=== PATIENT | male | born 1940 | race Asian ===

== ENCOUNTER 2022-12-24 06:46 | Observation (INO) | payer MEDICARE ==
[2022-12-19 14:23] LABS: BASOPHILS # (AUTO) 0.01 K/uL (0.00-0.20); BASOPHILS % (AUTO) 0.1 % (0.0-5.0); EOSINOPHILS # (AUTO) 0.13 K/uL (0.00-0.70); EOSINOPHILS % (AUTO) 1.3 % (0.0-8.0); HEMATOCRIT 46.9 % (42-54); IMMATURE GRANULOCYTE ABSOLUTE 0.03 K/uL (0-1); LYMPHOCYTES % (AUTO) 20.8 % (21.0-51.0); MEAN CORPUSCULAR HEMOGLOBIN 27.8 pg (27.0-33.0); MEAN CORPUSCULAR HGB CONC 33.3 g/dL (32.0-36.0); MEAN CORPUSCULAR VOLUME 83.5 fL (79-99); MONOCYTES # (AUTO) 0.6 K/uL (0.1-1.0); MONOCYTES % (AUTO) 6.4 % (3.0-13.0); NEUTROPHILS # (AUTO) 6.9 K/uL (1.8-7.7); NEUTROPHILS % (AUTO) 71.1 % (40.0-77.0); PLATELET COUNT (AUTO) 303 K/uL (130-400); RED BLOOD CELL COUNT(AUTO) 5.62 MIL/uL (4.50-6.20); RED CELL DISTRIBUTION WIDTH 13.4 % (11.0-15.5); WHITE BLOOD COUNT (AUTO) 9.7 K/uL (4.8-10.8)
[2022-12-19 14:37] LABS: INR 0.95 (0.85-1.15); PROTHROMBIN TIME 11.1 SEC (9.6-11.6)
[2022-12-19 14:38] LABS: PARTIAL THROMBOPLASTIN TIME 27.1 SEC (26.3-35.5)
[2022-12-19 14:43] LABS: ALBUMIN 3.8 g/dL (3.5-5.0); BILIRUBIN,TOTAL 0.6 mg/dL (0.2-1.0); POTASSIUM 4.4 mmol/L (3.5-5.1); TOTAL PROTEIN, SERUM 8.8 g/dL (6.0-8.3)
[2022-12-24] VITALS (27 sets, daily range): BP systolic 92–199; BP diastolic 51–86; PULSE 50–83; RESP 12–22; O2SAT 99–100
[~2022-12-24] VITALS: Ht 172.7 cm; Wt 74.4 kg
[2022-12-24] MEDS ORDERED: LACTATED RINGERS 1000ML 1,000 ML IV ONE (07:08)
[2022-12-24] MEDS: CEFAZOLIN SODIUM 2 GM VIAL ONE ×2 (07:37→12:00)
[2022-12-24] MEDS ORDERED: 0.9%NACL 100ML 48.45 ML, ROPIVACAINE 0.5% 5MG/ML 30ML 246.25 MG, KETOROLAC TROMETHAMINE... IV PRN ×5 (08:00)
[2022-12-24] MEDS ORDERED: CARV25TA PO (08:42)
[2022-12-24] MEDS ORDERED: DUTA0.5C37 PO (08:42)
[2022-12-24] MEDS ORDERED: SAW/1TAB2 PO (08:42)
[2022-12-24] MEDS ORDERED: CALC-866 PO (08:42)
[2022-12-24] MEDS ORDERED: AEC81 PO (08:42)
[2022-12-24] MEDS ORDERED: CELE100 PO (08:42)
[2022-12-24] MEDS ORDERED: TRAM-355 PO (08:42)
[2022-12-24] MEDS ORDERED: LATA2.5D14 OD (08:42)
[2022-12-24] MEDS ORDERED: SAW1CAPS7 PO (08:42)
[2022-12-24] MEDS ORDERED: ROSU10TA28 PO (08:42)
[2022-12-24] MEDS ORDERED: SUCCINYLCHOLINE CHLORIDE 20 MG/ML 10 ML VIAL ONE (09:52)
[2022-12-24] MEDS ORDERED: LIDOCAINE PF 100MG/5ML (2%) SYRINGE 5ML ONE (09:52)
[2022-12-24] MEDS ORDERED: GLYCOPYRROLATE 1 MG/5 ML SYRINGE ONE (09:54)
[2022-12-24] MEDS ORDERED: DEXAMETHASONE SOD PHOSPHATE 10MG/ML 1ML VIAL ONE (09:54)
[2022-12-24] MEDS ORDERED: NEOSTIGMINE 5MG/5ML SYR IV ONE (09:54)
[2022-12-24] MEDS ORDERED: PROPOFOL 10 MG/ML 20ML VIAL IV ONE (09:54)
[2022-12-24] MEDS ORDERED: ONDANSETRON 4MG INJ ONE (09:55)
[2022-12-24] MEDS ORDERED: ROCURONIUM 10MG/1ML SYR 10 MG/ML ML ONE (09:55)
[2022-12-24] MEDS ORDERED: PHENYLEPHRINE HCL 10 MG/ML 1ML VIAL IV ONE (09:59)
[2022-12-24] MEDS ORDERED: FENTANYL CITRATE PF 50 MCG/1 ML 5ML AMP IV ONE (10:00)
[2022-12-24] MEDS ORDERED: CEFAZOLIN SODIUM 1 GM VIAL ONE (10:19)
[2022-12-24] MEDS ORDERED: GENTAMICIN SULFATE 80 MG/2 ML VIAL ONE (10:19)
[2022-12-24] MEDS ORDERED: TRANEXAMIC ACID 1000MG/10ML ONE (10:19)
[2022-12-24] MEDS ORDERED: LIDOCAINE HCL 400MG/20ML VIAL ONE (10:27)
[2022-12-24] MEDS ORDERED: PROPOFOL 1000 MG/100 ML 100 ML IV ONE (10:27)
[2022-12-24] MEDS ORDERED: KETAMINE 50MG/ML SYRINGE 50 MG/ML DISP.SYRIN ONE (10:28)
[2022-12-24] MEDS ORDERED: MIDAZOLAM HCL 1 MG/ML 5ML VIAL ONE (10:34)
[2022-12-24] MEDS ORDERED: FENTANYL CITRATE PF 50 MCG/1 ML 2ML VIAL ONE (14:05)
[2022-12-24] MEDS ORDERED: DIPHENHYDRAMINE HCL 25 MG CAPSULE PO PRN (16:30)
[2022-12-24] MEDS ORDERED: BENZOCAINE/MENTH/CETYLPYRD CL 1 EACH LOZENGE MM PRN (16:30)
[2022-12-24] MEDS ORDERED: DIPHENOXYLATE HCL/ATROPINE 2.5/0.025 MG TAB PO PRN (16:30)
[2022-12-24] MEDS ORDERED: ACETAMINOPHEN 325 MG TAB PO SCH (16:30)
[2022-12-24] MEDS ORDERED: HYDROMORPHONE PCA 10 MG/50 ML 50 ML IV PRN (16:30)
[2022-12-24] MEDS ORDERED: DIPHENHYDRAMINE HCL 25 MG CAPSULE PO SCH (16:30)
[2022-12-24] MEDS ORDERED: ACETAMINOPHEN 325 MG TAB PO PRN ×2 (16:30)
[2022-12-24] MEDS ORDERED: DiphenhydrAMINE HCL 50 MG/ML VIAL IM PRN (16:30)
[2022-12-24] MEDS ORDERED: ONDANSETRON 4MG INJ IVP PRN (16:30)
[2022-12-24] MEDS ORDERED: LACTULOSE 20 GM/30 ML UDCUP PO PRN (16:30)
[2022-12-24] MEDS ORDERED: MAG/ALUM/SIMETH 30 ML UDCUP PO PRN (16:30)
[2022-12-24] MEDS ORDERED: CEFAZOLIN SODIUM 2 GM VIAL IVPB SCH (16:30)
[2022-12-24] MEDS ORDERED: POTASSIUM CHLORIDE 10% ELIXIR 20 MEQ/15 ML UDCUP PO PRN (19:30)
[2022-12-24] MEDS ORDERED: MAGNESIUM 2GM PREMIX 50ML 50 ML IV PRN (19:30)
[2022-12-24] MEDS ORDERED: POTASSIUM CHLORIDE 20MEQ/100ML 100 ML IV PRN (19:30)
[2022-12-24] MEDS: 0.9%NACL 1000ML 1,000 ML IV SCH (19:54)
[2022-12-24] MEDS: CEFAZOLIN SODIUM 2 GM VIAL IVPB SCH (20:00)
[2022-12-24] MEDS: TRAMADOL HCL 50 MG TABLET PO PRN (20:00)
[2022-12-25] VITALS (9 sets, daily range): BP systolic 107–189; BP diastolic 52–86; PULSE 66–79; RESP 16–20; O2SAT 96–98
[2022-12-25] MEDS: 0.9%NACL 1000ML 1,000 ML IV SCH ×3 (02:13→20:39)
[2022-12-25 04:07] LABS: HEMATOCRIT 35.7 % (42-54); MEAN CORPUSCULAR HGB CONC 32.8 g/dL (32.0-36.0); MEAN CORPUSCULAR VOLUME 82.3 fL (79-99); RED BLOOD CELL COUNT(AUTO) 4.34 MIL/uL (4.50-6.20); RED CELL DISTRIBUTION WIDTH 13.2 % (11.0-15.5)
[2022-12-25 04:11] LABS: CREATININE 1.1 mg/dL (0.5-1.5); MAGNESIUM 1.8 mg/dL (1.80-2.40); POTASSIUM 3.5 mmol/L (3.5-5.1)
[2022-12-25] MEDS: CEFAZOLIN SODIUM 2 GM VIAL IVPB SCH (05:14)
[2022-12-25] MEDS: KCL 20 MEQ ERTAB PO PRN ×2 (06:17→08:35)
[2022-12-25] MEDS: RIVAROXABAN 10 MG TABLET PO SCH (08:35)
[2022-12-25] MEDS: ASPIRIN 81 MG EC TAB PO SCH (08:35)
[2022-12-25] MEDS: FAMOTIDINE 20MG TAB PO SCH (08:35)
[2022-12-25] MEDS: CARVEDILOL 25 MG TABLET PO SCH ×2 (08:35→20:34)
[2022-12-25] MEDS: TRAMADOL HCL 50 MG TABLET PO PRN (11:11)
[2022-12-25] MEDS ORDERED: Rosuvastatin Calcium 10 MG PO SCH (21:00)
[2022-12-25] MEDS ORDERED: LATANOPROST 2.5 ML DROPS OD SCH (21:00)
[2022-12-26 04:32] VITALS: BP 119/54; PULSE 71; RESP 18
[2022-12-26 04:36] LABS: BASOPHILS # (AUTO) 0.01 K/uL (0.00-0.20); BASOPHILS % (AUTO) 0.1 % (0.0-5.0); EOSINOPHILS # (AUTO) 0.25 K/uL (0.00-0.70); EOSINOPHILS % (AUTO) 2.4 % (0.0-8.0); HEMATOCRIT 30.2 % (42-54); IMMATURE GRANULOCYTE ABSOLUTE 0.04 K/uL (0-1); LYMPHOCYTES # (AUTO) 1.3 K/uL (1.0-4.8); LYMPHOCYTES % (AUTO) 11.9 % (21.0-51.0); MEAN CORPUSCULAR HEMOGLOBIN 27.1 pg (27.0-33.0); MEAN CORPUSCULAR HGB CONC 31.5 g/dL (32.0-36.0); MONOCYTES % (AUTO) 9.5 % (3.0-13.0); NEUTROPHILS % (AUTO) 75.7 % (40.0-77.0); PLATELET COUNT (AUTO) 208 K/uL (130-400); RED BLOOD CELL COUNT(AUTO) 3.51 MIL/uL (4.50-6.20); RED CELL DISTRIBUTION WIDTH 13.7 % (11.0-15.5); WHITE BLOOD COUNT (AUTO) 10.6 K/uL (4.8-10.8)
[2022-12-26 04:45] LABS: CREATININE 1.3 mg/dL (0.5-1.5); MAGNESIUM 2.2 mg/dL (1.80-2.40); POTASSIUM 3.4 mmol/L (3.5-5.1)
[2022-12-26] MEDS: KCL 20 MEQ ERTAB PO PRN ×2 (06:26→13:35)
[2022-12-26] MEDS: 0.9%NACL 1000ML 1,000 ML IV SCH ×2 (06:26→10:26)
[2022-12-26 07:50] VITALS: O2SAT 95
[2022-12-26 08:00] VITALS: BP 129/59; PULSE 70; RESP 18
[2022-12-26] MEDS: FAMOTIDINE 20MG TAB PO SCH (08:04)
[2022-12-26] MEDS: ASPIRIN 81 MG EC TAB PO SCH (08:04)
[2022-12-26] MEDS: RIVAROXABAN 10 MG TABLET PO SCH (08:04)
[2022-12-26] MEDS: TRAMADOL HCL 50 MG TABLET PO PRN ×2 (08:05→13:35)
[2022-12-26] MEDS: CARVEDILOL 25 MG TABLET PO SCH (08:05)
[2022-12-26 12:00] VITALS: BP 129/50; PULSE 64; RESP 18
== END 2022-12-26 15:45 ==
LOC: CANPRESDC → DAH 06:46 → DAHIP 06:47 → 4BH 15:45
PROVIDERS: ADMIT Orthopaedic Surgery; ATTEND Orthopaedic Surgery
DX: M17.12 Unilateral primary osteoarthritis, left knee (principal); I10 Essential (primary) hypertension; F03.90 Unspecified dementia, unspecified severity, without behavioral disturbance, psychotic disturbance, mood disturbance, and anxiety; Z95.1 Presence of aortocoronary bypass graft; Z79.82 Long term (current) use of aspirin; Z79.01 Long term (current) use of anticoagulants; Z79.899 Other long term (current) drug therapy; Z98.890 Other specified postprocedural states
CPT/HCPCS: 80053; 85025 ×2; 85610; 85730; 36415 ×3; 87641; 27447; 96365; 96366 ×4; 96368; 97161; 97039 ×8; 97012; 97116 ×2; 96367; 83735 ×2; 80048 ×2; 85027; 97530 ×2; A6260; G0378 ×47; G0379; A4663; J7120 ×2; A4215 ×2; A4649 ×4; J3010 ×2; J0690 ×3; J3490 ×4; J1170; J1100; J2710; J0330; J2001; J2250; J1580; J2704 ×2; J2405; J2371; A6223; C1763 ×2; C1776; A5120; A4223; A4222; A4221; A6450; J7030; A4510; J3475

== ENCOUNTER 2023-01-16 18:00 | Outpatient (CLI) | payer MEDICARE, OTHER ==
[~2023-01-16 18:00] MED LIST: AEC81 PO; CALC-866 PO; CARV25TA PO; CELE100 PO; DUTA0.5C37 PO; GADOTERATE MEGLUMINE 5 MMOL/10 ML VIAL IV ONE; LATA2.5D14 OD; ROSU10TA28 PO; SAW/1TAB2 PO; SAW1CAPS7 PO; TRAM-355 PO
== END 2023-01-16 19:00 | disposition home or self-care (01) ==
LOC: RAH 18:00 → EDSTATUS 01-18 00:11
PROVIDERS: ATTEND Internal Medicine
DX: K72.90 Hepatic failure, unspecified without coma (principal); N28.1 Cyst of kidney, acquired
CPT/HCPCS: 74183; A9575; S8037